=== PATIENT | female | born 1950 | race African-American/Black ===

== ENCOUNTER 2018-02-18 07:25 | Inpatient (IN) | payer OTHER ==
[~2018-02-18] VITALS: Ht 154.9 cm; Wt 59.9 kg
[2018-02-18] MEDS ORDERED: ALVIMOPAN 12 MG CAPSULE PO ONE (08:07)
[2018-02-18] MEDS ORDERED: cefOXitin 2 GM IVPB PREMIX 50 ML IV ONE (08:30)
[2018-02-18] MEDS ORDERED: CANA300T PO (08:50)
[2018-02-18] MEDS ORDERED: LOSA1TAB3 PO (08:50)
[2018-02-18] MEDS ORDERED: LIP20 PO (08:50)
[2018-02-18] MEDS ORDERED: GLIP10TA11 PO (08:50)
[2018-02-18] MEDS ORDERED: METF1000 PO (08:50)
[2018-02-18] MEDS ORDERED: POLYMYXIN 500,000/BACIT.10,000 UNITS in NS IRR 1 L IR ONE (11:40)
[2018-02-18] MEDS ORDERED: LR 1,000 ML IV SCH (12:03)
[2018-02-18] MEDS ORDERED: HYDROmorphone 2 MG/ML VIAL IVP PRN ×2 (12:15)
[2018-02-18] MEDS ORDERED: MEPERIDINE HCL/PF 25 MG/ML DISP.SYRIN IVP PRN (12:15)
[2018-02-18] MEDS ORDERED: HYDROmorphone 1 MG INJ. 1 MG/ML AMPUL IVP PRN (12:15)
[2018-02-18] MEDS ORDERED: HYDROcodone/ACETAMIN 5-325 MG TAB (NORCO/ VICODIN) PO PRN ×2 (14:00)
[2018-02-18] MEDS ORDERED: ACETAMINOPHEN 325 MG TABLET PO PRN (14:00)
[2018-02-18] MEDS ORDERED: DILTIAZEM HCL 25 MG/5 ML VIAL ONE (14:35)
[2018-02-18] MEDS ORDERED: ROCURONIUM BROMIDE 10 MG/ML (ZEMURON) ONE (14:35)
[2018-02-18] MEDS ORDERED: KETOROLAC TROMETHAMINE 30 MG VIAL ONE (14:35)
[2018-02-18] MEDS ORDERED: PROPOFOL 200MG/ 20ML VIAL (DIPRIVAN) IV ONE (14:35)
[2018-02-18] MEDS ORDERED: MIDAZOLAM HCL 5 MG/ML VIAL (VERSED) IV ONE (14:35)
[2018-02-18] MEDS ORDERED: LR 1,000 ML IV.SOLN IV ONE (14:35)
[2018-02-18] MEDS ORDERED: DEXAMETHASONE SOD PHOSPHATE 4 MG/ML VIAL ONE (14:35)
[2018-02-18] MEDS ORDERED: fentaNYL CITRATE 250 MCG/5 ML AMP ONE (14:35)
[2018-02-18] MEDS ORDERED: NS 100 ML BAG ONE (14:35)
[2018-02-18] MEDS ORDERED: SEVOFLURANE 15 MIN GAS INH ONE (14:35)
[2018-02-18] MEDS ORDERED: BUPIVACAINE LIPOSOME/PF 266 MG/20 ML VIAL INFIL ONE (14:35)
[2018-02-18] MEDS ORDERED: ONDANSETRON HCL 4 MG/2 ML VIAL ONE (14:35)
[2018-02-18 14:47] LABS: HEMATOCRIT 34.2 % (36-48); HEMOGLOBIN 11.6 g/dL (12.0-16.0)
[2018-02-18 15:01] LABS: CALCIUM 8.4 mg/dL (8.4-11.0); CREATININE 1.39 mg/dL (0.55-1.30); POTASSIUM 4.2 mmol/L (3.5-5.1)
[2018-02-18] MEDS ORDERED: BUPIVACAINE /PF 0.25% 30 ML VIAL INJ ONE (15:30)
[2018-02-18] MEDS ORDERED: LIDOCAINE 2%, 20 ML MDV INJ ONE (15:30)
[2018-02-18 15:45] VITALS: BP_SYST 154
[2018-02-18] MEDS: ONDANSETRON HCL 4 MG/2 ML VIAL IVP PRN ×2 (16:08→20:51)
[2018-02-18] MEDS: HYDROmorphone 1 MG INJ. 1 MG/ML AMPUL IVP PRN ×2 (16:11→20:00)
[2018-02-18] MEDS: D5/0.45 NS 1,000 ML IV SCH (16:20)
[2018-02-18 18:03] VITALS: BP_SYST 148
[2018-02-18 19:50] VITALS: BP_SYST 155
[2018-02-18] MEDS: cefOXitin SODIUM 2 GM in D5W 100 ML IV SCH (20:04)
[2018-02-18] MEDS: FAMOTIDINE PF 20 MG/2 ML VIAL IVP SCH (20:04)
[2018-02-18] MEDS: ALVIMOPAN 12 MG CAPSULE PO SCH (21:00)
[2018-02-18 23:55] VITALS: BP_SYST 129
[2018-02-19] MEDS: D5/0.45 NS 1,000 ML IV SCH ×3 (00:51→20:12)
[2018-02-19] MEDS: HYDROmorphone 1 MG INJ. 1 MG/ML AMPUL IVP PRN ×5 (00:53→22:43)
[2018-02-19 06:14] LABS: HEMATOCRIT 30.7 % (36-48); HEMOGLOBIN 10.5 g/dL (12.0-16.0); MEAN CORPUSCULAR HEMOGLOBIN 31 pg (27-31); MEAN CORPUSCULAR HGB CONC 34 % (32-36); MEAN CORPUSCULAR VOLUME 92 fL (79.0-98.0); PLATELET COUNT (AUTO) 173 K/uL (130-430); RED BLOOD CELL COUNT(AUTO) 3.33 MIL/uL (4.2-6.2); RED CELL DISTRIBUTION WIDTH 12.1 % (9.0-15.0); WHITE BLOOD COUNT (AUTO) 14.4 K/uL (4.8-10.8)
[2018-02-19 06:25] LABS: ALBUMIN 2.9 g/dL (3.4-4.8); CALCIUM 8.1 mg/dL (8.4-11.0); CREATININE 1.49 mg/dL (0.55-1.30); POTASSIUM 4.4 mmol/L (3.5-5.1); TOTAL BILIRUBIN 0.4 mg/dL (0.0-1.0)
[2018-02-19 08:00] VITALS: BP_SYST 129
[2018-02-19] MEDS: FAMOTIDINE PF 20 MG/2 ML VIAL IVP SCH ×2 (08:40→20:11)
[2018-02-19] MEDS: cefOXitin SODIUM 2 GM in D5W 100 ML IV SCH (08:40)
[2018-02-19] MEDS: ALVIMOPAN 12 MG CAPSULE PO SCH ×2 (08:40→20:11)
[2018-02-19] MEDS: ENOXAPARIN SODIUM 30 MG/0.3 ML SYRINGE SUBCUT SCH (08:42)
[2018-02-19 09:53] LABS: BAND % (MANUAL) 0 % (0-6); BASOPHILS % (MANUAL) 0 % (0-2); EOSINOPHILS % (MANUAL) 0 % (0-7); LYMPHOCYTES % (MANUAL) 8 % (20-46); MONOCYTES % (MANUAL) 6 % (0-11)
[2018-02-19] MEDS ORDERED: DEXTROSE 50% JECT 50 ML DISP.SYRIN IVP PRN (12:00)
[2018-02-19] MEDS: INSULIN REGULAR, HUMAN 100 UNITS/ML, 10 ML VIAL (novoLIN R) SUBCUT PRN ×2 (12:25→17:42)
[2018-02-19] MEDS: METOCLOPRAMIDE HCL 10 MG/2 ML VIAL IVP SCH ×2 (12:25→17:36)
[2018-02-19 12:35] VITALS: BP_SYST 113
[2018-02-19 16:16] VITALS: BP_SYST 107
[2018-02-19 19:58] VITALS: BP_SYST 126
[2018-02-20 00:22] VITALS: BP_SYST 132
[2018-02-20] MEDS: METOCLOPRAMIDE HCL 10 MG/2 ML VIAL IVP SCH ×3 (00:24→12:00)
[2018-02-20] MEDS: INSULIN REGULAR, HUMAN 100 UNITS/ML, 10 ML VIAL (novoLIN R) SUBCUT PRN ×3 (00:33→12:23)
[2018-02-20] MEDS: HYDROmorphone 1 MG INJ. 1 MG/ML AMPUL IVP PRN ×2 (03:24→08:52)
[2018-02-20] MEDS: D5/0.45 NS 1,000 ML IV SCH (06:20)
[2018-02-20 08:37] VITALS: BP_SYST 156
[2018-02-20] MEDS: FAMOTIDINE PF 20 MG/2 ML VIAL IVP SCH (08:39)
[2018-02-20] MEDS: ALVIMOPAN 12 MG CAPSULE PO SCH (08:39)
[2018-02-20] MEDS: ENOXAPARIN SODIUM 30 MG/0.3 ML SYRINGE SUBCUT SCH (08:43)
[2018-02-20 13:02] VITALS: BP_SYST 158
[2018-02-20] MEDS ORDERED: ATORVASTATIN 20 MG TABLET PO ONE (13:15)
[2018-02-20] MEDS ORDERED: LOSARTAN/HYDROCHLOROTHIAZIDE TAB (HYZAAR 50-12.5 MG) PO SCH (13:15)
[2018-02-20] MEDS ORDERED: LOSARTAN POTASSIUM 50 MG TABLET (COZAAR) PO ONE (13:30)
[2018-02-20] MEDS ORDERED: HYDROCHLOROTHIAZIDE 12.5 MG CAPSULE (HCTZ) PO ONE (13:30)
[2018-02-20 15:24] VITALS: BP_SYST 153
[2018-02-21] MEDS ORDERED: CANAGLIFLOZIN 300 MG PO SCH (09:00)
[2018-02-21] MEDS ORDERED: ATORVASTATIN 20 MG TABLET PO SCH (09:00)
[2018-02-21] MEDS ORDERED: LOSARTAN POTASSIUM 50 MG TABLET (COZAAR) PO SCH (09:00)
[2018-02-21] MEDS ORDERED: HYDROCHLOROTHIAZIDE 12.5 MG CAPSULE (HCTZ) PO SCH (09:00)
== END 2018-02-20 15:42 | disposition home or self-care (01) | DRG 330 ==
LOC: SMU 07:25
PROVIDERS: ADMIT Internal Medicine; ATTEND Colon & Rectal Surgery
PROC: 0DTG4ZZ Resection of Left Large Intestine, Percutaneous Endoscopic Approach (ICD-10-PCS; 2018-02-18)
PROC: 0DJD8ZZ Inspection of Lower Intestinal Tract, Via Natural or Artificial Opening Endoscopic (ICD-10-PCS; principal; 2018-02-18 09:30)
DX: C18.7 Malignant neoplasm of sigmoid colon (principal); C78.01 Secondary malignant neoplasm of right lung; C78.02 Secondary malignant neoplasm of left lung; I12.9 Hypertensive chronic kidney disease with stage 1 through stage 4 chronic kidney disease, or unspecified chronic kidney disease; E11.22 Type 2 diabetes mellitus with diabetic chronic kidney disease; E78.5 Hyperlipidemia, unspecified; N18.3 Chronic kidney disease, stage 3 (moderate); Z90.89 Acquired absence of other organs; Z90.710 Acquired absence of both cervix and uterus; Z82.49 Family history of ischemic heart disease and other diseases of the circulatory system; Z83.3 Family history of diabetes mellitus; Z79.2 Long term (current) use of antibiotics; Z79.84 Long term (current) use of oral hypoglycemic drugs; Z79.899 Other long term (current) drug therapy
CPT/HCPCS: 36415; 80048; 80053; 82962; 85007; 85018-TC; 85027; 87081; 88307; 88309; 94010; 97116-GP; 97530-GP; C1727; C9290; J0694; J1100; J1170; J1650; J1885; J2250; J2405; J2704; J2765; J3010; J3490; J7042; J7060; J7120